=== PATIENT | male | born 1960 | race Caucasian/White ===

== ENCOUNTER 2023-01-30 15:44 | Emergency (ER) | payer OTHER ==
[~2023-01-30] VITALS: Ht 170.2 cm; Wt 91.0 kg
[2023-01-30 16:13] VITALS: O2SAT 96
[2023-01-30] MEDS ORDERED: KETOROLAC 30MG/ML VIAL IV STA (17:46)
[2023-01-30] MEDS ORDERED: PIPERACILLIN/TAZ 3.375G PREMIX 50 ML IV ONE (18:00)
[2023-01-30] MEDS ORDERED: SODIUM CHLORIDE 0.9% 1,000 ML IV ONE (18:00)
[2023-01-30] MEDS ORDERED: VANCOMYCIN 1G PREMIX 200 ML IV ONE (18:00)
[2023-01-30 18:46] LABS: BASOPHILS % 0.2 % (0.0-2.0); EOSINOPHILS % 0.5 % (0.0-5.0); HEMATOCRIT. 34.6 % (42.0-52.0); HEMOGLOBIN. 11.6 g/dL (14.0-18.0); LYMPHOCYTES % 7.8 % (20.0-50.0); MEAN CORPUSCULAR HEMOGLOBIN 30.6 pg (28.0-32.0); MEAN CORPUSCULAR HGB CONC 33.5 g/dL (31.0-37.0); MEAN CORPUSCULAR VOLUME 91.2 fL (80.0-94.0); MEAN PLATELET VOLUME 6.1 fl (7.4-10.4); NEUTROPHILS % 86.5 % (40.0-76.0); PLATELET 441 x1000/uL (130-400); RED BLOOD CELL COUNT 3.79 mill/uL (4.7-6.1); RED CELL DISTRIBUTION WIDTH 14.5 % (11.6-14.6); WHITE BLOOD COUNT 10.6 x1000/uL (4.5-11.0)
[2023-01-30 18:53] LABS: CHLORIDE 103 mEq/L (98-107); INDEX HEMOLYSI 1 (1-3); INDEX ICTERIC 1 (1-4); INDEX LIPEMIC 1 (1-3); POTASSIUM 4.1 mEq/L (3.5-5.1); SODIUM 134 mEq/L (136-145)
[2023-01-30 19:01] LABS: ALANINE AMINOTRANSFERASE 18 IU/L (13-61); ALBUMIN 3.2 g/dL (3.4-5.0); ASPARTATE AMINOTRANSFERASE 11 IU/L (15-37); BILIRUBIN TOTAL 0.3 mg/dL (0.1-1.0); CALCIUM 7.8 mg/dL (8.5-10.1); CARBON DIOXIDE 29 mEq/L (21-32); CREATININE 0.9 mg/dL (0.6-1.3); GLUCOSE 179 mg/dL (70-105); PROTEIN TOTAL 8.2 g/dL (6.0-8.3); UREA NITROGEN BLOOD 19 mg/dL (7-21)
[2023-01-30 21:53] VITALS: BP 111/79; PULSE 79; RESP 18; TEMP 98.4
== END 2023-01-30 22:18 | disposition short-term general hospital (02) ==
LOC: ER 15:44
DX: L03.031 Cellulitis of right toe (principal)
CPT/HCPCS: 36415; 73630; 80053; 83605; 85025; 96365; 96375; 99285; J1885; J2543; J3370; J7030